=== PATIENT | female | born 1940 | race Caucasian/White ===

== ENCOUNTER 2017-01-04 08:44 | Inpatient (IN) | payer MEDICARE ==
[~2017-01-04 08:44] MED LIST: ACETAMINOPHEN650 MG PR; ALDACTONE25 M1 PO; AMIODARONE HCL200 M1 PO; ASPIRIN EC325 M1 PO; BISACODYL10 M1 PR; BUSPIRONE HCL10 M2 PO; BUSPIRONE HCL7.5 M1 PO; BYSTOLIC10 M1 PO; BYSTOLIC5 M1 PO; CPAP; CPAP NS; CYMBALTA60 M1 PO; HYDRALAZINE HCL25 M1 PO; HYDREA500 M1 PO; HYDROCODON-ACE1 EA16 PO; K-TAB ER20 ME1 PO; KEFLEX500 M4 PO; KLONOPIN1 M1 PO; LASIX40 M1 PO; LIPITOR80 M1 PO; LOVENOX40 MG/0.1 SC; MILK OF MAGNESIA PO; MINOXIDIL2.5 M1 PO; MIRALAX17 G2 PO; OMEPRAZOLE20 M4 PO; POTASSIUM CHLO20 ME3 PO; RYTHMOL150 M1 PO; TIMOPTIC XE EACH EYE; TYLENOL325 M2 PO; XARELTO15 M1 PO; ZOCOR10 M1 PO; ZOFRAN4 M2 PO
[2017-01-04 10:47] LABS: PROTHROMBIN TIME 12.1 SECONDS (9.0-13.6)
[2017-01-05 04:32] LABS: HCT-HEMATOCRIT 30.4 % (34.0-49.0); IMMATURE GRANULOCYTES ABSOLUTE 0.06 tho/cmm (0-0.03); IMMATURE GRANULOCYTES PERCENT 0.3 % (0-0.3); LYMPH % 8.7 % (20-45); LYMPH ABSOLUTE COUNT 2.1 tho/cmm (0.8-4.5); MCH (MEAN CORPUSCULAR HGB) 22.8 pg (28.0-32.0); MCHC MEAN CORPUSCULAR HGB CONC 29.6 % (32.0-36.0); MCV (MEAN CELL VOLUME) 77.2 fl (82.0-96.0); MEAN PLATELET VOLUME 10.2 cmc (9.4-12.4); MONO % 5.6 % (0-12); MONOCYTE ABSOLUTE COUNT 1.3 tho/cmm (0.0-1.2); NEUTROPHIL ABSOLUTE COUNT 20.2 tho/cmm (1.6-8.0); NEUTROPHIL-AUTOMATED 20.2 tho/cmm (1.6-8.0); NEUTROPHILS % 85.4 % (40-80); PLATELET COUNT 421 tho/cmm (150-450); RED BLOOD COUNT 3.94 mil/cmm (4.00-5.20); RED CELL DISTRIBUTION WIDTH 17.2 % (12.4-16.4); WHITE BLOOD COUNT 23.7 tho/cmm (4.0-10.0)
[2017-01-05 04:40] LABS: ANION GAP 12 mmol/L (0-20); BLOOD UREA NITROGEN 27 mg/dl (6-24); CALCIUM 8.3 mg/dl (8.5-10.5); CARBON DIOXIDE-VENOUS 25 mmol/L (22-32); CHLORIDE 105 mmol/l (96-110); CREATININE 1.27 mg/dl (0.50-1.10); GLUCOSE 123 mg/dL (70-110); POTASSIUM 4.6 mmol/L (3.7-5.1); SODIUM 137 mmol/L (135-145); eGFR VALUE FOR BLACK 47 mL/Min
[2017-01-05] MEDS ORDERED: ROXICODONE5 M2 PO (14:08)
[2017-01-05] MEDS ORDERED: ULTRAM50 M1 PO (14:11)
== END 2017-01-05 15:00 | DRG 470 ==
LOC: SHSA 08:44 → ORE 10:53 → PACU 12:39 → 5EA 13:50
PROVIDERS: Family Medicine; Physician Assistant Surgical; ADMIT Orthopaedic Surgery Foot and Ankle Surgery
PROC: 0SRC0J9 Replacement of Right Knee Joint with Synthetic Substitute, Cemented, Open Approach (ICD-10-PCS; principal; 2017-01-04)
DX: M17.11 Unilateral primary osteoarthritis, right knee (principal); I48.0 Paroxysmal atrial fibrillation; I11.0 Hypertensive heart disease with heart failure; I50.32 Chronic diastolic (congestive) heart failure; F41.9 Anxiety disorder, unspecified; E78.5 Hyperlipidemia, unspecified; G25.81 Restless legs syndrome; Z68.41 Body mass index [BMI] 40.0-44.9, adult; E66.9 Obesity, unspecified; G47.30 Sleep apnea, unspecified; Z79.01 Long term (current) use of anticoagulants; Z79.899 Other long term (current) drug therapy; Z95.0 Presence of cardiac pacemaker
CPT/HCPCS: C1713; C1776; J0171; J0690; J1885; J2270; J2795